=== PATIENT | female | born 1980 | race Caucasian/White ===

== ENCOUNTER 2016-12-14 12:04 | Emergency (ER) | payer OTHER ==
[2016-12-14 15:19] LABS: APPEARANCE CLEAR (CLEAR); COLOR YELLOW (YELLOW)
[2016-12-14 15:20] LABS: BILIRUBIN NEGATIVE (NEGATIVE); GLUCOSE NEGATIVE (NEGATIVE); KETONE NEGATIVE (NEGATIVE); LEUKOCYTE ESTERASE TRACE (NEGATIVE); NITRITE NEGATIVE (NEGATIVE); PROTEIN NEGATIVE (NEGATIVE); UROBILINOGEN NORMAL (NORMAL)
[2016-12-14 15:21] LABS: BACTERIA MODERATE /hpf (NONE SEEN); EPITHELIAL CELLS 0-5 /hpf (0-5)
[2016-12-14 16:11] LABS: HCG URINE NEGATIVE (NEGATIVE)
== END 2016-12-14 17:34 | disposition home or self-care (01) ==
LOC: D.ER 12:04
PROVIDERS: Emergency Medicine; Nurse Practitioner Acute Care
DX: N20.1 Calculus of ureter (principal); F17.200 Nicotine dependence, unspecified, uncomplicated

== ENCOUNTER 2017-10-23 13:04 | Emergency (ER) | payer OTHER | END 2017-10-23 14:12 | disposition home or self-care (01) | LOC: D.ER 13:04 | DX: J09.X2 Influenza due to identified novel influenza A virus with other respiratory manifestations (principal); F17.200 Nicotine dependence, unspecified, uncomplicated ==

== ENCOUNTER 2018-02-26 17:37 | Emergency (ER) | payer MEDICAID | END 2018-02-26 18:20 | disposition home or self-care (01) | LOC: D.ER 17:37 | DX: S61.210A Laceration without foreign body of right index finger without damage to nail, initial encounter (principal); W26.8XXA Contact with other sharp object(s), not elsewhere classified, initial encounter; Y93.89 Activity, other specified; Y92.019 Unspecified place in single-family (private) house as the place of occurrence of the external cause ==

== ENCOUNTER 2018-09-03 13:00 | Emergency (ER) | payer MEDICAID ==
[~2018-09-03] VITALS: Ht 170.2 cm; Wt 68.2 kg
[2018-09-03 13:08] VITALS: Ht 170.2 cm; Wt 68.2 kg
[2018-09-03] MEDS ORDERED: ZITHROMAX250 MG PO (14:44)
[2018-09-03] MEDS ORDERED: VENTOLIN HFA18 GM INH (14:44)
[2018-09-03] MEDS ORDERED: TESSALON PERLE100 MG PO (14:44)
[2018-09-03 15:44] VITALS: BP 112/74
== END 2018-09-03 15:42 | disposition home or self-care (01) ==
LOC: D.ER 13:00
DX: J20.9 Acute bronchitis, unspecified (principal); J01.90 Acute sinusitis, unspecified; J02.9 Acute pharyngitis, unspecified; R51 Headache; F17.200 Nicotine dependence, unspecified, uncomplicated

== ENCOUNTER 2018-10-09 15:27 | Emergency (ER) | payer MEDICAID ==
[~2018-10-09] VITALS: Ht 170.2 cm; Wt 68.2 kg
[~2018-10-09 15:27] MED LIST: TESSALON PERLE100 MG PO; VENTOLIN HFA18 GM INH; ZITHROMAX250 MG PO
[2018-10-09 15:34] VITALS: BP 113/71; Ht 170.2 cm; Wt 68.2 kg
[2018-10-09] MEDS ORDERED: CYCLOBENZAPRINE10 MG PO (16:31)
[2018-10-09] MEDS ORDERED: NORCO 7.5/325 T1 TA1 PO (16:31)
[2018-10-09] MEDS ORDERED: IBUPROFEN800 MG PO (16:31)
== END 2018-10-09 17:15 | disposition home or self-care (01) ==
LOC: D.ER 15:27
DX: S22.31XA Fracture of one rib, right side, initial encounter for closed fracture (principal); X58.XXXA Exposure to other specified factors, initial encounter; Y93.89 Activity, other specified; Y92.89 Other specified places as the place of occurrence of the external cause; F17.200 Nicotine dependence, unspecified, uncomplicated